=== PATIENT | female | born 1970 | race Caucasian/White ===

== ENCOUNTER 2016-09-26 16:15 | Emergency (ER) | payer OTHER ==
[~2016-09-26] VITALS: Wt 60.0 kg
--- NOTE | 2016-09-26 16:31 | ERD ---
ER Documentation Chief Complaint Date/Time DATE: 09/26/16 TIME: 16:23 Chief Complaint DYSURIA AND FREQUENCY FOR THE PAST MONTH. NO BACKPAIN HPI 46-year-old otherwise healthy female with a history of multiple urinary tract infections in the past presents with dysuria, frequency, urgency and cloudy urine 1 day. Patient states her symptoms are very similar to symptoms she has experienced in the past with prior UTIs. Patient was last treated with ciprofloxacin and experienced only temporary. Patient states she develops a UTI often after sexual intercourse with her . Patient denies any new partners. Patient denies any vaginal discharge or bleeding. Patient notes proper sanitary habits. Patient regularly sees her primary care physician for routine checkups. Patient has attempted to treat her discomfort with Advil with moderate relief. At this time patient states she is experiencing a 4 out of 10 burning pain which is worsened upon urination. Patient denies any hematuria, vaginal discharge, vomiting, abdominal pain, diarrhea back pain. Patient notes she has experienced mild nausea this week but reports that it is related to her chronic migraines. Patient reports a history of partial hysterectomy as well as 2 C-sections. ROS All systems reviewed and are negative except as per history of present illness. Medications Home Meds Active Scripts Nitrofurantoin Monohyd Macrocr* (Macrobid*) 100 Mg Capsr, 100 MG PO BID for 14 Days, CAP take one tablet day of intercourse and one tablet day after intercourse Prov:KERWIN DAVIS PA-C 09/26/16 Cephalexin* (Keflex*) 500 Mg Capsule, 500 MG PO QID for 7 Days, CAP Prov:KERWIN DAVIS PA-C 09/26/16 Discontinued Scripts Hydrocodone/Acetaminophen ([place] 5-325 Tablet) 1 Each Tablet, 1 EACH PO Q6 for 5 Days, TAB Prov:KERWIN DAVIS PA-C 09/26/16 Allergies Allergies: Coded Allergies: sulfamethoxazole (Verified Allergy, Mild, RASHES, 07/21/14) trimethoprim (Verified Allergy, Mild, RASHES, 07/21/14) PMhx/Soc History of Surgery: Yes (HYSTERECTOMY, C SECTION, CHOLECYSTECTOMY) Anesthesia Reaction: No Hx Neurological Disorder: No Hx Respiratory Disorders: No Hx Cardiac Disorders: No Hx Psychiatric Problems: No Hx Miscellaneous Medical Probl: No Hx Alcohol Use: No Hx Substance Use: No Hx Tobacco Use: No Physical Exam Vitals Vital Signs Date Time Temp Pulse Resp B/P Pulse Ox O2 Delivery O2 Flow Rate FiO2 09/26/16 16:18 98.8 88 20 145/77 98 Physical Exam Const: Well-developed, nontoxic-appearing, well-nourished, in no acute distress Head: Atraumatic Eyes: Normal Conjunctiva ENT: Normal External Ears, Nose and Mouth. Neck: Full range of motion..~ No meningismus. Resp: Clear to auscultation bilaterally Cardio: Regular rate and rhythm, no murmurs Abd: Soft, non tender, non distended. Normal bowel sounds Skin: No petechiae or rashes Back: No midline or flank tenderness Ext: No cyanosis, or edema Neur: Awake and alert Psych: Normal Mood and Affect Procedures/MDM Patient seen and treated and flu track today. Well-appearing 46-year-old with a history of UTIs presents to the emergency department with 1 day of frequency, urgency, and dysuria. Patient is well- appearing and in no acute distress upon arrival to the emergency department. Patient's vital signs are reviewed. Patient is afebrile, normotensive, not tachycardic, non-hypoxic. Physical exam normal. At this time I have low suspicion for appendicitis, small bowel obstruction, ovarian torsion, tubo-ovarian abscess, renal calculi, PID, diverticulitis, or cholecystitis. I will provide the patient with an alternative antibiotic as well as a course of prophylactic treatment upon intercourse. I recommended a follow-up with urogynecology specialist for better management of her frequent UTI symptoms. Based on patient's history of present illness and physical examination the decision was made to discharge. There is no evidence of life threatening injuries or illnesses at this time. On re-examination, patient resting in no distress, stable vital signs, reports feeling better and safe for discharge with outpatient follow up with PMD in 1-2 days. Patient given return precautions. Departure Diagnosis: Primary Impression: Dysuria Additional Impressions: Chronic UTI (urinary tract infection) Frequency of urination Urgency of urination Nausea KERWIN DAVIS PA-C Sep 26, 2016 16:31
[2016-09-26] MEDS ORDERED: CEPH-443 PO (16:35)
[2016-09-26] MEDS ORDERED: NITR-58 PO (16:35)
[2016-09-26] MEDS ORDERED: HYDR-906 PO (16:36)
== END 2016-09-26 16:39 | disposition home or self-care (01) ==
LOC: E/R 16:15
DX: R30.0 Dysuria (principal); R35.0 Frequency of micturition; R11.0 Nausea; N39.0 Urinary tract infection, site not specified; N39.41 Urge incontinence
CPT/HCPCS: 99284